=== PATIENT | male | born 1980 | race Two or more races ===

== ENCOUNTER → 2024-11-03 | Outpatient (CLI) | payer MEDICAID, SELFPAY ==
--- NOTE | 2024-11-03 13:33 | XR_ITS ---
Examination: Shoulder bilateral, 6 views Technique: Shoulder AP internal rotation, AP external rotation, Y view each shoulder total 6 views Exam date and time :November 03, 2024 1345 hours INDICATIONS: Bilateral shoulder pain and numbness 6 months FINDINGS: Moderate osteopenia Bilateral moderate narrowing glenohumeral joints Bilateral mild osteoarthritis acromioclavicular joints No shoulder fractures or dislocations. No calcific tendinitis IMPRESSION: Bilateral moderate narrowing glenohumeral joints Bilateral mild osteoarthritis acromioclavicular joints
== END | disposition home or self-care (01) ==
LOC: CDIM 13:20
PROVIDERS: PCP Physician Assistant; Referring Provider Physician Assistant; Visit Provider Physician Assistant
DX: M19.012 Primary osteoarthritis, left shoulder (principal); M19.011 Primary osteoarthritis, right shoulder; M25.812 Other specified joint disorders, left shoulder; M25.811 Other specified joint disorders, right shoulder
CPT/HCPCS: 73030

== ENCOUNTER 2025-03-08 08:35 | Day surgery (SDC) | payer MEDICAID, SELFPAY ==
[2025-03-07 12:51] VITALS: BMI 28.5
[2025-03-08] VITALS (9 sets, daily range): BP systolic 112–134; BP diastolic 76–88; PULSE 71–99; RESP 11–19; TEMP 36.6–36.8; O2SAT 92–99; BMI 28.8
[2025-03-08] MEDS: RINGERS LACTATED 500 ML 500 ML 100 ML IV (09:10)
[2025-03-08] MEDS: MIDAZOLAM INJ 1 MG/ML VIAL 2 ML (ASD USE ONLY) 2 MG IVP (09:14)
[2025-03-08] MEDS: fentaNYL CIT INJ 50 mCg/ML AMP 2ML (ASD USE ONLY) IVP (09:14)
== END 2025-03-08 10:19 | disposition home or self-care (01) ==
PROVIDERS: PCP Physician Assistant; Referring Provider Surgery; Visit Provider Surgery
PROC: 0DBE8ZX Excision of Large Intestine, Via Natural or Artificial Opening Endoscopic, Diagnostic (ICD-10-PCS; CPT 45380; principal; 2025-03-08 13:00)
DX: K52.9 Noninfective gastroenteritis and colitis, unspecified (principal); K57.30 Diverticulosis of large intestine without perforation or abscess without bleeding; E11.9 Type 2 diabetes mellitus without complications; Z79.84 Long term (current) use of oral hypoglycemic drugs
CPT/HCPCS: 45378; A4649; J2250; J3010; J7120